=== PATIENT | male | born 1980 | race Caucasian/White ===

== ENCOUNTER 2022-07-16 12:11 | Emergency (ER) | payer OTHER, MEDICAID, SELFPAY ==
[2022-07-16 12:11] VITALS: TEMP 27.6; BMI 27.2
[2022-07-16 12:12] VITALS: PULSE 0
--- NOTE | 2022-07-16 12:14 | NURSING ---
CODE BLUE CALLED PRIOR TO ARRIVAL [id number]
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
--- NOTE | 2022-07-16 12:44 | ED.RN ---
Pt received 600 mL of Normal Saline in L humeral head IO
--- NOTE | 2022-07-16 12:56 | ED.RN ---
MD checked for cardiac activity at 1220 with u/s, no movement
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
== END 2022-07-16 14:40 ==
PROVIDERS: Emergency Provider Emergency Medicine; Visit Provider Emergency Medicine
DX: I46.9 Cardiac arrest, cause unspecified (principal); S72.92XA Unspecified fracture of left femur, initial encounter for closed fracture; V89.2XXA Person injured in unspecified motor-vehicle accident, traffic, initial encounter; Z95.0 Presence of cardiac pacemaker
CPT/HCPCS: 31500; 92950; 99282; J7030; A4216